=== PATIENT | male | born 1985 | race Caucasian/White ===

== ENCOUNTER 2021-06-28 13:39 | Outpatient (CLI) | payer BC, OTHER, SELFPAY ==
[2021-06-28 14:26] VITALS: BP 134/88; PULSE 86; RESP 18; TEMP 36.2; O2SAT 95; BMI 40.4
[2021-06-28 14:40] VITALS: BP 132/84; PULSE 84; RESP 18; O2SAT 94
[2021-06-28 15:44] VITALS: BP 127/84; PULSE 65; RESP 18; TEMP 36.3; O2SAT 97
== END 2021-06-28 13:40 | disposition home or self-care (01) ==
LOC: OPS 13:41
PROVIDERS: PCP Family Medicine; Visit Provider Family Medicine
DX: U07.1 COVID-19 (principal)
CPT/HCPCS: 96365

== ENCOUNTER 2021-07-30 14:54 | Outpatient (CLI) | payer BC, SELFPAY ==
--- NOTE | 2021-07-30 14:59 | XR_ITS ---
WS: [id number] Cervical spine, 3 views, 07/30/2021 Clinical Data: CERVICAL RADICULOPATHY Comparison: None. Findings: No compression fractures are seen. The disc heights are normal. There is no prevertebral so ft tissue swelling. The odontoid is unremarkable. The soft tissues of the neck and the lung apices ar e normal. XR/XR cervical spine 3V* [id number] Impression: Negative cervical spine.
== END 2021-07-30 14:55 | disposition home or self-care (01) ==
PROVIDERS: PCP Family Medicine; Visit Provider Family Medicine
DX: M54.12 Radiculopathy, cervical region (principal)
CPT/HCPCS: 72040

== ENCOUNTER 2021-08-05 09:17 | Outpatient (CLI) | payer BC, SELFPAY ==
--- NOTE | 2021-08-05 09:30 | MR_ITS ---
WS: [id number] MRI BRAIN WITH AND WITHOUT CONTRAST HISTORY: BELLS PALSY, RIGHT; VERTIGO COMPARISON: None available. TECHNIQUE: Multiplanar imaging performed through the brain with MultiHance 20 ml's IV. No acute infarcts are seen. Jalloh-white matter differentiation is well preserved. There are a few scat tered T2 and FLAIR signal abnormalities in the subcortical white matter. Not unusual for age. No susceptibility artifacts or prior lacunar infarcts. Ventricles and extra-axial spaces are normal. Clivus and pituitary gland are normal. There is mild inferior displacement of cerebellar tonsils 6 mm beyond the foramen magnum consistent w ith a mild Chiari malformation. Slightly greater inferior displacement of the RIGHT cerebellar tonsil and the LEFT. No signal abnormality or enhancement along the 5th or 7th cranial nerves on this study . Postcontrast images are negative for masses or vascular malformations. Dural venous sinuses are normal. Paranasal sinuses: Well aerated with no significant disease. Mastoid air cells: Normal. Calvarium and scalp: No skull fracture. Minimally enhancing well-circumscribed lesions in the scalp. The largest over the posterior LEFT parietal bone measures 15 x 11 mm. Smaller lesion towards posteri or central skull measures 12.8 mm. These both demonstrate very mild enhancement are probably sebaceou s cysts. MR/MR head wo/w con [id number] IMPRESSION: 1. No acute mass. 2. Mild Chiari I malformation. 3. Minimal chronic microvascular ischemic changes. No acute infarct. 4. No enhancement along the 5th or 7th cranial nerves.
[2021-08-05] MEDS: gadobenate dimeglumine 20 mL vial IV (10:56)
== END 2021-08-05 09:18 | disposition home or self-care (01) ==
LOC: RADSHAW 09:25
PROVIDERS: PCP Family Medicine; Visit Provider Family Medicine
DX: G51.0 Bell's palsy (principal); R42 Dizziness and giddiness; G93.5 Compression of brain; I67.82 Cerebral ischemia
CPT/HCPCS: 70553; A9577

== ENCOUNTER → 2022-07-01 09:48 | Outpatient (BNVA) | payer BC, SELFPAY | PROVIDERS: PCP Family Medicine; Visit Provider Family Medicine | DX: Z00.00 Encounter for general adult medical examination without abnormal findings (principal); E53.8 Deficiency of other specified B group vitamins; Z51.81 Encounter for therapeutic drug level monitoring | CPT/HCPCS: 80053; 80061; 82607; 85025 ==

== ENCOUNTER → 2022-08-31 14:49 | Outpatient (BNVA) | payer BC, SELFPAY | PROVIDERS: PCP Family Medicine; Visit Provider Family Medicine | DX: Z51.81 Encounter for therapeutic drug level monitoring (principal) | CPT/HCPCS: 80053 ==

== ENCOUNTER → 2023-05-22 15:38 | Outpatient (BNVA) | payer BC, SELFPAY | PROVIDERS: PCP Family Medicine; Visit Provider Family Medicine | DX: Z00.00 Encounter for general adult medical examination without abnormal findings (principal); L60.2 Onychogryphosis; Z51.81 Encounter for therapeutic drug level monitoring; R63.1 Polydipsia; Z13.220 Encounter for screening for lipoid disorders; R10.9 Unspecified abdominal pain; E03.9 Hypothyroidism, unspecified; R79.89 Other specified abnormal findings of blood chemistry; K62.89 Other specified diseases of anus and rectum | CPT/HCPCS: 80053; 80061; 83036; 84439; 84443; 85025; 86141 ==

== ENCOUNTER → 2023-06-30 12:30 | Outpatient (BNVA) | payer BC, SELFPAY | PROVIDERS: PCP Family Medicine; Visit Provider Family Medicine | DX: Z01.30 Encounter for examination of blood pressure without abnormal findings (principal); Z11.9 Encounter for screening for infectious and parasitic diseases, unspecified; Z11.59 Encounter for screening for other viral diseases; Z01.83 Encounter for blood typing | CPT/HCPCS: 86705; 86706; 86900; 87340; 87806 ==

== ENCOUNTER → 2023-07-04 | Outpatient (BNVA) | payer BC, SELFPAY | PROVIDERS: PCP Family Medicine; Visit Provider Family Medicine | DX: Z11.59 Encounter for screening for other viral diseases (principal) | CPT/HCPCS: 87491; 87591 ==

== ENCOUNTER 2024-02-29 15:29 | Outpatient (CLI) | payer BC, SELFPAY ==
--- NOTE | 2024-02-29 15:30 | USR_ITS ---
PROCEDURE INFORMATION: Exam: US Scrotum and Artery or Vein of the Abdominal and/or Reproductive Organs, Limited Scrotum Exam date and time: 02/29/2024 3:52 PM Age: 38 years old Clinical indication: Scrotum pain; Additional info: Left testicular pain TECHNIQUE: Imaging protocol: Real-time ultrasound of the scrotum. Real-time duplex ultrasound scan of the arterial or venous flow with peña scale, color Doppler flow and spectral waveform analysis with image documentation. Limited Duplex exam focused of the scrotum. Duplex exam was performed to evaluate for torsion and other vascular conditions. COMPARISON: No relevant prior studies available. FINDINGS: Right testicle: The right testicle measures 4.3 x 2.9 x 3.1 cm. Normal arterial waveforms are documented in the right testicle on spectral Doppler. Left testicle: The left testicle measures 4.2 x 2.6 x 3.5 cm. Normal arterial waveforms are documented in the left testicle on spectral Doppler. Epididymides: Left epididymal head cyst measuring 1.6 cm. Extratesticular spaces: Small bilateral hydroceles. Scrotum/soft tissues: Normal. US/US scrotum [id number] IMPRESSION: 1. Small bilateral hydroceles. 2. Symmetric bilateral testicular blood flow.
== END 2024-02-29 15:30 | disposition home or self-care (01) ==
LOC: RAD 15:31
PROVIDERS: PCP Family Medicine; Visit Provider Family Medicine
DX: N50.812 Left testicular pain (principal); N50.3 Cyst of epididymis; N43.3 Hydrocele, unspecified
CPT/HCPCS: 76870

== ENCOUNTER → 2024-08-06 10:22 | Outpatient (BNVA) | payer BC, SELFPAY | PROVIDERS: PCP Family Medicine; Visit Provider Family Medicine | DX: Z00.00 Encounter for general adult medical examination without abnormal findings (principal); R17 Unspecified jaundice; Z51.81 Encounter for therapeutic drug level monitoring; Z13.220 Encounter for screening for lipoid disorders | CPT/HCPCS: 80053; 80061; 82247; 82248; 85025 ==

== ENCOUNTER → 2025-08-13 14:25 | Outpatient (BNVA) | payer BC, SELFPAY | PROVIDERS: PCP Family Medicine; Visit Provider Family Medicine | DX: Z00.00 Encounter for general adult medical examination without abnormal findings (principal); Z13.6 Encounter for screening for cardiovascular disorders; Z51.81 Encounter for therapeutic drug level monitoring; E55.9 Vitamin D deficiency, unspecified | CPT/HCPCS: 80053; 80061; 82306; 85025 ==